=== PATIENT | female | born 1950 | race Caucasian/White ===

== ENCOUNTER 2019-07-14 14:15 | Emergency (ER) | payer MEDICARE, SELFPAY ==
[2019-07-14 14:27] VITALS: BP 152/72; PULSE 79; RESP 20; TEMP 36.7; O2SAT 99
--- NOTE | 2019-07-14 14:34 | ED.LOWEXIN ---
HPI - Extremity Injury (Lower) General Chief Complaint: Extremity Injury, Lower Stated Complaint: sore on right leg Time Seen by Provider: 07/14/19 14:34 Source: patient and RN notes reviewed History of Present Illness HPI Narrative: Patient is a 69-year-old female who presents the urgent care with complaints of swelling and redness to the right lower leg. Patient states that she noticed the redness 5 days ago. States it has not gotten any larger or more painful but does hurt to rub to the area. Patient denies of any fever, nausea, vomiting, calf pain, chest pain, shortness of breath. Patient denies any heart history. Patient does have chronic varicose veins and has had operations on the veins in the past. Patient denies any known injury or fall.. No other acute complaints. No acute distress noted. Patient read the plan of care. Related Data Home Medications Medication Instructions Recorded Confirmed garlic 1,000 mg PO DAILY 07/14/19 07/14/19 levothyroxine 88 mcg PO DAILY 07/14/19 07/14/19 simvastatin 20 mg PO DAILY 07/14/19 07/14/19 Allergies Allergy/AdvReac Type Severity Reaction Status Date / Time No Known Allergies Allergy Verified 07/14/19 14:35 Review of Systems Review of Systems: Narrative: CONSTITUTIONAL: Denies fever, chills, or sweats. EYES: Denies visual changes, redness, or discharge. ENT: Denies rhinorrhea, congestion, sore throat, or otalgia. CARDIOVASCULAR: Denies chest pain, palpitations, or edema. RESPIRATORY: Denies cough or dyspnea. GASTROINTESTINAL: Denies abdominal pain, nausea, vomiting, or diarrhea. GENITOURINARY: Denies dysuria or hematuria. SKIN: Reports of painful red swelling at bump to the right lower leg MUSCULOSKELETAL: Denies back pain, joint pain, or myalgia. NEUROLOGIC: Denies headache, numbness, or weakness. All other systems reviewed are negative, except as documented in HPI. PMFSH Comments At the time of my signature, I reviewed and agree with the nursing past medical, surgical, social, and family history. There is no relevant family history pertinent to the patient complaint. Exam Narrative: Exam Narrative: GENERAL: This is a well-nourished, well-developed patient, in no apparent distress. HEAD: normocephalic, atraumatic. EYES: PERRL. Sclera clear/white. Vision is grossly intact. EARS: External ears normal NOSE: External nose normal with no obvious nasal discharge THROAT: Mucous membranes moist NECK: Neck supple SKIN: 6 x 5 cm area of erythema, firmness to the medial anterior aspect of the right lower leg. Warm, intact with no suspicious lesions or rash, good texture and turgor. NEURO: awake, alert, and oriented to person, place and time. There were no obvious focal neurologic abnormalities. EXTREMITIES: No clubbing, cyanosis, or edema. No joint tenderness, effusion, or edema noted. No calf tenderness. Negative Homans sign to the right lower extremity Course Vital Signs Vital signs: Vital Signs Temperature 98.1 F 07/14/19 14:27 Pulse Rate 79 07/14/19 14:27 Respiratory Rate 20 07/14/19 14:27 Blood Pressure 152/72 H 07/14/19 14:27 Pulse Oximetry 99 07/14/19 14:27 Temperature 98.1 F 07/14/19 14:27 Pulse Rate 79 07/14/19 14:27 Respiratory Rate 20 07/14/19 14:27 Blood Pressure 152/72 H 07/14/19 14:27 Pulse Oximetry 99 07/14/19 14:27 Reviewed?patient is informed that they may have pre-hypertension or hypertension based on a blood pressure reading in the department. I recommend the patient call the primary care provider listed on their discharge instructions or a physician of their choice this week to arrange follow-up for further evaluation of possible pre-hypertension or hypertension. MDM - Extremity Injury (Lower) MDM Narrative Medical decision making narrative: Discussed varicosities, cellulitis and DVT. Condition is most likely related to varicose veins in the lower leg or possible cellulitis. Advised the patient to be aware of signs a
== END 2019-07-14 14:53 | disposition home or self-care (01) ==
PROVIDERS: Emergency Provider Nurse Practitioner Family; PCP Internal Medicine
DX: I83.93 Asymptomatic varicose veins of bilateral lower extremities (principal); E78.00 Pure hypercholesterolemia, unspecified; E03.9 Hypothyroidism, unspecified
CPT/HCPCS: 99213; G0463

== ENCOUNTER 2021-01-06 02:55 | Day surgery (SDC) | payer MEDICARE, SELFPAY ==
--- NOTE | 2020-12-31 08:31 | PC.NURSE ---
Report to the Outpatient Waiting Room, entrance under the green pavilion located off [facility], at time 1030 on date 01/06/21 . OR Time: _1130 . - You and your visitor will be asked a series of questions to screen for COVID 19 for your protection. - A mask is required within the hospital. - Only one visitor is allowed at this time. Patient visitors will be guided where to wait when not with patient. Preoperative COVID Testing Requirements: No COVID Test needed if: (proof is required; if not received patient will have Rapid Test prior to entry) - Patient has received COVID Vaccine at least 14 days prior to procedure date or - Patient has positive COVID test result within last 90 days of surgery date. COVID Test needed if above criteria is not met If not COVID vaccinated a COVID test must be conducted within 72 hours of surgery and patient is asked to isolate self from time of testing until procedure. You will go to the [facility] for your COVID testing. The [facility] site is located at the corner of [address] [facility]. You will only be called if COVID results are positive and your surgeon may reschedule your elective surgery date. LIGHT BREAKFAST Patients may have clear liquids (water, carbonated beverages, clear teas, apple juice) until 3 hours prior to surgery with a maximum of 20 ounces. - No food from midnight until time of surgery - Infants may have breast milk until 4 hours before surgery, infant formula 6 hours prior to surgery. - Children will be allowed to drink immediately following surgery. If applicable, please bring a bottle or sippy cup to assist with drinking. Juice, water, soda, and popsicles are readily available. For infants on formula, please bring formula the day of surgery. Pacifiers are allowed. Take the following medications with a SIP of water the morning of surgery: __TAKE ALL ROUTINE AM MEDICATIONS Medications to discontinue per physician Date to take last dose Please no make-up, nail montserratian, hairspray, perfume, deodorant, or body powder the day of surgery. No jewelry (including any body piercings) or valuables the day of surgery, leave them at home. Please take a shower or bath the night before, or the morning of, surgery with an antibacterial soap. Wear comfortable, loose fitting clothing. Children are encouraged to wear pajamas. - Jewelry must be removed prior to entering the operating room. Rings and piercings that are not removed may be cut off. - The hospital will not accept responsibility for valuables. - Please leave all valuables, including medications, at home the day of surgery. If you are going home after surgery, a licensed hook up driver must drive you home. - NO public transportation without another adult. - We recommend that an adult stay with you for 24 hours following discharge. - We also recommend that you do not drive, make important decision, drink alcoholic beverages, or take any drugs that were not prescribed by your health care provider for at least 24 hours after your discharge time. For Pediatric surgeries, we recommend two adults accompany the child home (only one inside the building at this time). Follow any additional instructions given to you from your surgeon. Telephone instructions given to _PATIENT and asked if any additional questions and then verbalized understanding. Patient advised to call surgeon office or pre surgery nurse liaison [phone] if any additional questions.
[2020-12-31 08:38] VITALS: BMI 23.5
[2021-01-06] VITALS (8 sets, daily range): BP systolic 121–152; BP diastolic 53–76; PULSE 57–77; RESP 16–18; TEMP 36.9; O2SAT 95–99
--- NOTE | 2021-01-06 07:17 | WPDHPUPDATE1 ---
History and Physical Update Update Date/Time: 01/06/21 07:17 History and Physical has been reviewed, including an updated exam of the patient. There are NO changes in the patient's condition. Risks, benefits, and alternatives have been discussed and questions answered. Patient agrees to proceed with procedure.
[2021-01-06] MEDS: BACITRACIN OINTMENT 15 GM TUBE 1 APPLIC TOPICAL (11:18)
[2021-01-06] MEDS: LIDO 1%/EPINEPHRINE 1:100,000 50 ML VIAL 7 ML INFILTRATE (11:18)
--- NOTE | 2021-01-06 12:03 | W.PM.PROC2 ---
Procedure Note - Detailed Date of Procedure 01/06/21 Pre-op Diagnosis neurofibroma right palm Post-op Diagnosis same Procedure Performed 1.5 cm excision of neurofibroma left palm with simple repair 4 cm Surgeon Ervin Hirsch MD Anesthesia local Indications Right palmar mass with prior biopsy Findings 3 cm subcutaneous mass Description of Procedure The mass of the right palm was marked in the holding area. She was taken to the operating placed supine operating table. Time-out was held and confirmed. Extremity prepped and draped in usual fashion. Tourniquet was applied. The site was marked for the incision and locally infiltrated with 1% lidocaine with epinephrine. Adequate anesthesia was obtained. The extremity was exsanguinated and the tourniquet inflated 250 mmHg. The incision was made to excise the skin at the very base of the neurofibroma. Dissection was then carried in the subcutaneous tissue with sharp and blunt dissection to dissect the mass from surrounding normal tissue. The mass came off the palmar fascia and thenar muscles with no trouble. No significant neurovascular structures were identified. The wound was closed with interrupted 3-0 nylon sutures in simple fashion paralleling the thenar crease. Small bandage with Talha wrap was applied. The tourniquet had been released just prior to closure of the skin. She is discharged home with instructions in wound care and a prescription for hydrocodone 5/325 6. Estimated Blood Loss 2 Drains No Packing No Pathology yes Complications No immediate complications Condition stable Disposition same day
== END 2021-01-06 12:47 | disposition home or self-care (01) ==
PROVIDERS: PCP Internal Medicine; Visit Provider Plastic Surgery
PROC: (CPT 64788; principal; 2021-01-06 11:30)
DX: D36.10 Benign neoplasm of peripheral nerves and autonomic nervous system, unspecified (principal)
CPT/HCPCS: 64788; 88304; 88305; A9270

== ENCOUNTER 2024-12-10 09:31 | Outpatient (CLI) | payer MEDICARE, SELFPAY ==
--- NOTE | ~2024-12-10 | US_ITS ---
ULTRASOUND ABDOMEN LIMITED (RIGHT UPPER QUADRANT) Clinical History: K82.4 - Cholesterolosis of gallbladder Comparison: None Technique: Right upper quadrant sonography Findings: Liver: Normal size. Normal echotexture. No intrahepatic biliary ductal dilatation. Common Duct: Normal caliber. 2 mm. Gallbladder: No stones. No wall thickening. No pericholecystic fluid. Tiny nonmobile focus without shadowing consistent with polyp; no surveillance indicated given small size. No foci of wall thickening or clinical artifact to suggest adenomyomatosis. Pancreas: Unremarkable. IMPRESSION: 1. No acute findings. Reviewed, dictated and finalized at location R. IMPRESSION: 1. No acute findings.
== END 2024-12-10 09:32 | disposition home or self-care (01) ==
LOC: MICIMG 09:32
PROVIDERS: PCP Internal Medicine; Visit Provider Surgery
DX: K82.4 Cholesterolosis of gallbladder (principal)
CPT/HCPCS: 76705